=== PATIENT | female | born 1955 | race Caucasian/White ===

== ENCOUNTER → 2018-06-06 12:10 | Outpatient (REF) | payer MEDICAID, SELFPAY ==
--- NOTE | 2018-06-06 10:40 | PAPFT_PTH ---
PATIENT: Harriett Vyas LOC: [facility] U#:[id number] AGE/SX: 70/F ROOM: RE06/06/[address]: RO Kunz : 1955 BED: DIS: SPEC #: [id number] RECD: 06/06/18 12:52 STATUS: AMBER REQ #: [id number] ROYCE: 06/06/18 10:[address]: Antonieta Lindquist DEPT: [facility] Cytology RECD BY: Rachana Potter Tissues: 1 - CX/ENDOCX FOR PAP SMEARS Procedures: PAP THIN PREP/UVM Screening HPV DNA PROBE Comments: [id number]
== END ==
LOC: LBN 12:10
PROVIDERS: PCP Nurse Practitioner Family; Visit Provider Nurse Practitioner Family
DX: Z12.4 Encounter for screening for malignant neoplasm of cervix (principal); Z11.51 Encounter for screening for human papillomavirus (HPV)
CPT/HCPCS: 88142; 87624

== ENCOUNTER → 2018-06-14 02:42 | Outpatient (CLI) | payer MEDICAID, SELFPAY ==
[2018-06-14 07:54] LABS: Abs Immature Grans 0.01 k/cumm (0.0-0.09); Absolute Basophil Count 0.02 k/cumm (0.0-0.2); Absolute Eosinophil Count 0.09 k/cumm (0.0-0.7); Absolute Neutrophil Count 4.23 k/cumm (1.2-6.7); Basophils % 0.3; Eosinophils % 1.3; HGB 15.9 g/dL (12.0-15.5); Immature Grans % 0.1; Lymphocytes % 29.2; Mean Corp. HGB Concentration 33.8 g/dL (32.0-36.0); Mean Corpuscular Hemoglobin 30.6 pg (27.0-33.0); Mean Corpuscular Volume 90.6 fL (80-95); Mean Platelet Volume 10.7 fL (8.0-11.0); Monocytes % 7.3; Neutrophils % 61.8; Platelet Count 240 x1000/uL (130-400); RBC 5.19 m/cumm (4.00-5.20); RBC Distribution Width 13.2 % (11.7-14.6); White Blood Cell Count 6.85 k/cumm (4.4-10.8)
[2018-06-14 08:51] LABS: ALT 20 U/L (12-78); AST 16 U/L (15-37); Albumin 3.9 g/dL (3.4-5.0); Alkaline Phosphatase 54 U/L (46-116); Anion Gap 6.7 mmol/L (3-11); BUN 18 mg/dL (7-18); Bilirubin, Total 0.3 mg/dL (0.2-1.0); CO2 30.3 mmol/L (21.0-32.0); CREATININE 1.06 mg/dL (0.55-1.02); Calcium 9.1 mg/dL (8.5-10.1); Chloride 106 mmol/L (98-107); Cholesterol 182 mg/dL (50-200); Glucose 99 mg/dL (70-100); HDL Cholesterol 40 mg/dL (40-60); LDL CHOLESTEROL 122 mg/dL (<100); Sodium 143 mmol/L (136-145); TROPONIN-I 1.6 ug/mL (4.0-12.0); Total Protein 7.1 g/dL (6.4-8.2); Triglyceride 157 mg/dL (30-150)
== END ==
PROVIDERS: PCP Nurse Practitioner Family; Visit Provider Nurse Practitioner Family
DX: E78.5 Hyperlipidemia, unspecified (principal); I10 Essential (primary) hypertension; Z51.81 Encounter for therapeutic drug level monitoring; Z00.00 Encounter for general adult medical examination without abnormal findings
CPT/HCPCS: 36415; 80053; 80061; 83721; 80156; 85025

== ENCOUNTER 2018-07-02 00:20 | Outpatient (CLI) | payer MEDICAID, SELFPAY ==
--- NOTE | 2018-07-02 09:26 | DI.MAMMO_ITS ---
SYMPTOM/DIAGNOSIS: SCREENING, Z12.31 MAMMOGRAMS: Mammograms were interpreted according to the usual protocol including computer analysis with CAD system, tomosynthesis and C view imaging. Comparison is made with exams from [id number]. The breasts are composed of scattered fibroglandular densities, breast density, category B. No suspicious masses or suspicious microcalcifications are seen. There has been no significant change. IMPRESSION: Category 1B, negative mammogram. Routine screening is recommended. [facility] ASSESSMENT OF FINDINGS: Negative. Category 1. Patient will receive a letter notifying them of these results. BI-RADS category B. There are scattered areas of fibroglandular density.
== END 2018-07-02 00:40 ==
PROVIDERS: PCP Nurse Practitioner Family; Visit Provider Nurse Practitioner Family
DX: Z12.31 Encounter for screening mammogram for malignant neoplasm of breast (principal)
CPT/HCPCS: 77063; 77067

== ENCOUNTER 2020-06-08 02:33 | Outpatient (CLI) | payer MEDICAID, SELFPAY ==
[2020-06-08 12:42] LABS: ALT 31 U/L (14-59); AST 14 U/L (15-37); Albumin 3.9 g/dL (3.4-5.0); Alkaline Phosphatase 47 U/L (46-116); Anion Gap 10.1 mmol/L (3-11); BUN 18 mg/dL (7-18); Bilirubin, Total 0.3 mg/dL (0.2-1.0); CO2 27.9 mmol/L (21.0-32.0); CREATININE 0.94 mg/dL (0.55-1.02); Calcium 9.2 mg/dL (8.5-10.1); Calculated LDL 133 mg/dL (<100); Chloride 104 mmol/L (98-107); Cholesterol 208 mg/dL (<200); Glucose 95 mg/dL (74-106); HDL Cholesterol 34 mg/dL (40-60); Sodium 142 mmol/L (136-145); TSH 4.76 uIU/mL (0.36-3.74); Total Protein 7.1 g/dL (6.4-8.2); Triglyceride 205 mg/dL (<150)
[2020-06-08 12:46] LABS: Hemoglobin A1C 5.7 % (3.8-5.6)
== END 2020-06-08 02:53 ==
PROVIDERS: PCP Nurse Practitioner Family; Visit Provider Nurse Practitioner Family
DX: E78.5 Hyperlipidemia, unspecified (principal); I10 Essential (primary) hypertension
CPT/HCPCS: 36415; 80053; 80061; 83036; 84439; 84443

== ENCOUNTER 2020-07-13 00:20 | Outpatient (CLI) | payer MEDICAID, SELFPAY ==
--- NOTE | 2020-07-13 08:11 | DI.MAMMO_ITS ---
EXAM: MG MAMMO SCREENING CLINICAL HISTORY: screening,Z12.39 TECHNIQUE: Bilateral full field digital CC and MLO mammographic images were obtained with 3D tomosyn thesis and utilizing computer aided detection (CAD). COMPARISON: Available for comparison. FINDINGS: Masses/Architectural Distortion: None seen. Microcalcifications: No suspicious pleomorphic-type are seen. Skin Thickening/Nipple Retraction: None. IMPRESSION: 1. No significant interval change with no specific features of malignancy noted. 2. Unless there is more urgent need, screening mammography is recommended, as per [place] [employer] guidelines. BI-RADS Category 1 - Negative Breast Density - Category A - Almost entirely fatty A negative radiographic report should not delay biopsy if a dominant or clinically suspicious mass is present. Up to ten percent of cancers are not identified on mammography. A negative report may reinforce clinical impression. Adenosis and dense breasts may obscure an underlying neoplasm. False positive reports average 6 to 10%. Patient will receive a letter notifying them of these results.
== END 2020-07-13 00:40 ==
PROVIDERS: PCP Nurse Practitioner Family; Visit Provider Nurse Practitioner Family
DX: Z12.31 Encounter for screening mammogram for malignant neoplasm of breast (principal)
CPT/HCPCS: 77063; 77067

== ENCOUNTER 2020-09-24 03:05 | Outpatient (CLI) | payer MEDICAID, SELFPAY ==
[2020-09-24 12:46] LABS: Calculated LDL 101 mg/dL (<100); Cholesterol 181 mg/dL (<200); HDL Cholesterol 30 mg/dL (40-60); Triglyceride 253 mg/dL (<150)
== END 2020-09-24 03:25 ==
PROVIDERS: PCP Nurse Practitioner Family; Visit Provider Nurse Practitioner Family
DX: E78.5 Hyperlipidemia, unspecified (principal)
CPT/HCPCS: 36415; 80061

== ENCOUNTER 2021-04-19 09:29 | Emergency (ER) | payer MEDICAID, SELFPAY ==
[2021-04-19 09:39] VITALS: BP 133/84; PULSE 79; RESP 18; TEMP 36.7; O2SAT 98
--- NOTE | 2021-04-19 10:03 | DI.RAD_ITS ---
Exam(s) XR FOOT LT COMPLETE EXAM: XR FOOT LT COMPLETE CLINICAL HISTORY: fall/injury yesterday. TECHNIQUE: 2D digital imaging was performed. COMPARISON: No exams were available for comparison FINDINGS: There is no evidence of fracture or diastasis of the Lisfranc joint. Mild degenerative changes are n oted in the metatarsophalangeal joint of the great toe. There is also increased density in the soft tissues medial to the great toe metatarsal head. Other metatarsophalangeal joints appear unremarkabl e as do the interphalangeal joints and more proximal joints of the foot. Tiny inferior calcaneal spu r is noted. IMPRESSION: DATA REPOSITORY: RADIATION DOSE DELIVERED:
--- NOTE | 2021-04-19 10:41 | ED.GENADUL_ITS ---
Discharge Plan Disposition Patient Disposition: HOME Condition: Stable Discharge Details Clinical Impression: Contusion of foot Primary Care Provider: Antonieta Lindquist ED Provider: Kelvin Cuadra Home Meds and New Rx's Prescriptions: Continued aspirin [Adult Low Dose Aspirin] 81 mg tablet,delayed release (DR/EC) 162 mg PO DAILY RF: 0 famotidine 20 mg tablet 20 mg PO DAILY Qty: 90 RF: 4 hydrochlorothiazide 12.5 mg tablet 12.5 mg PO DAILY Qty: 90 RF: 4 losartan [Cozaar] 100 mg tablet 100 mg PO DAILY Qty: 90 RF: 4 atorvastatin [Lipitor] 80 mg tablet 80 mg PO DAILY Qty: 90 RF: 4 bupropion HCl [Wellbutrin XL] 150 mg tablet extended release 24 hr 150 mg PO DAILY Qty: 90 RF: 4 Discharge Instructions Instructions: Foot Contusion (ED) Additional Instructions: X-ray is unremarkable. Wear short boot as needed, advance activity as tolerated. Rest, elevate, cool compresses every 2 hours for 20 minutes. Jtyw-nec-mzufaqm medications such as Tylenol and/or Motrin as directed for discomfort. Please watch for new or worsening symptoms and return to the ER for any concerns. Medical Decision Making 65-year-old female presents for a left foot injury she sustained last night. Neuro, vascular, tendon intact. Will obtain x-ray and reassess X-ray of left foot read by me and confirmed by radiology as no acute fracture. Discussed x-ray with patient. Discussed treatment plan disposition. Patient placed into a short walking boot, reports significant improvement. Patient comfortable treating with conservative measures, resting, elevating, cool compress, Tylenol, Motrin, and will advance activity with her walking boot as tolerated. Declined crutches. Medical Records Medical records reviewed: Yes I reviewed the patient's medical records. Imaging Data Radiologic Study: Attestation: I personally reviewed and interpreted this imaging study as follows: Imaging: X-Ray Radiologist's impression: There is no evidence of fracture or diastasis of the Lisfranc joint. Mild degenerative changes are noted in the metatarsophalangeal joint of the great toe. There is also increased density in the soft tissues medial to the great toe metatarsal head. Other met atarsophalangeal joints appear unremarkable as do the interphalangeal joints and more proximal joints of the foot. Tiny inferior calcaneal spur is noted. HPI General Mode of arrival: ambulatory . Date/Time Provider Initiated Documentation: 04/19/21 09:49 . Limitations to Documentation: no limitations . Information obtained by: patient . HPI Narrative: This is a 65-year-old female, past medical history that includes CVA, hypertension, GERD, hyperlipidemia, presenting for a left foot injury. Patient states last night she slipped, attempted to catch herself, striking her left foot against the bedpost. She denies any other injury. Denies numbness, tingling, weakness. Patient reports that she is able to bear weight but this increases her discomfort. Patient has rested and elevated as well as cool compresses yesterday. Reports the pain is moderate at rest, worse with movement or bearing weight. Related Data Home Medications Medication Instructions Recorded Confirmed hydrochlorothiazide 12.5 mg tablet 12.5 mg PO DAILY #90 tab-cap 04/19/20 04/19/21 losartan 100 mg tablet 100 mg PO DAILY #90 tab-cap 04/19/20 04/19/21 aspirin 81 mg tablet,delayed 162 mg PO DAILY tab 05/04/20 04/19/21 release famotidine 20 mg tablet 20 mg PO DAILY #90 tab 05/04/20 04/19/21 atorvastatin 80 mg tablet 80 mg PO DAILY #90 tab 07/02/20 04/19/21 bupropion HCl 150 mg 24 hr tablet, 150 mg PO DAILY #90 tab 07/23/20 04/19/21 extended release Previous Rx's Medication Instructions Recorded hydrochlorothiazide 12.5 mg tablet 12.5 mg PO DAILY #90 tab-cap 04/19/20 losartan 100 mg tablet 100 mg PO DAILY #90 tab-cap 04/19/20 famotidine 20 mg tablet 20 mg PO DAILY #90 tab 05/04/20 atorvastatin 80 mg tablet 80 mg PO DAILY #90 tab 07/02/20 bupropion HCl 150 mg 24 hr tablet, 150 mg PO DAILY #90 tab 07/23/20 extended release Allergies Allergy/AdvReac Type Severity Reaction Status Date / Time lisinopril Allergy Unknown HIVES Unverified 04/19/21 09:43 latex Allergy Skin Rash Unverified 04/19/21 09:43 General Stated Complaint: Orthopedic TIMI: 4 Review of Systems Constitutional Constitutional: Denies weakness Musculoskeletal Musculoskeletal: Denies deformity, Denies arthralgias, Denies numbness, Reports stiffness and Denies tingling Integumentary/Breasts Skin/Breast: Denies erythema Neurologic Neurologic: Denies numbness, Denies tingling and Denies weakness [facility] Medical History Allergic rhinitis Cigarette smoker CVA (cerebral vascular accident) (~2003) Diverticulosis of colon Sigmoid and descending colon Essential hypertension GERD (gastroesophageal reflux disease) Hyperlipidemia Major depressive disorder Prediabetes Surgical History History of section (~1971) S/P colonoscopy (07/25/17) S/P tonsillectomy Family History Mother , 92 Dementia Heart disease Hypertension Father , at 63 of colon cancer Colon cancer Myocardial infarction Heart disease Sister No problems noted. Sister No problems noted. Sister No problems noted. Brother No problems noted. Maternal Grandfather Heart disease Maternal Grandmother Heart disease Paternal Grandfather Cancer of kidney Heart disease Paternal Grandmother , at 63 of ovarian cancer Ovarian cancer Social History Smoking/Tobacco Use Status: Current every day Tobacco Type: cigarettes Smoking packs per day: 1 Smoking cigarettes per day: 20.0 Years smoked: 45 Smoking pack- years: 45.00 Tobacco: How many years used: 45 Quit status: not considering quitting Second Hand Exposure: Yes Smoking risk assessment performed?: Yes Alcohol Intake: current Alcohol Intake frequency: a few times a month Alcohol type: beer Drug use: Occasionally Substance use type: marijuana Caregiver/Support person: No Household members: none Housing: house Communication Needs: Hard of Hearing Do you need help understanding health information?: Rarely Pets and animals: Yes Pets and animals: cat(s) Sexually active: No Do you think of yourself as: straight/heterosexual Current gender identity: female What is your relationship status?: never How often do you talk on the phone with friends or family?: three or more times per week How often do you get together with friends or relatives?: twice per week How often do you attend confucianism or episcopal services?: decline to answer Do you belong to any clubs or organized social groups?: no Panel score (0-1 are the most socially isolated patients): 1 What type of physical activity do you participate in: none Brit/Cheondoism: Islam Special brit needs: No Seatbelt use: always Helmet use: Yes Helmet use: always Drive intox or ride w/intox diesel truck driver: No Do you feel safe at home: Yes Do you feel safe in your relationship?: Yes Female Reproductive History Menstrual Menopause type: natural History History 1 Para 1 Hx # Term Pregnancies Multiple births Hx # Pregnancies Ectopic pregnancies AB induced Hx Number of Living Children 1 AB spontaneous Exam Const General: cooperative, healthy appearing, comfortable and no acute distress Orientation: alert and awake HENMT Head: normal to inspection, normocephalic and atraumatic Eyes Conjunctivae: conjunctivae normal Neck Neck: normal visual inspection, trachea midline and supple Resp Effort & Inspection: normal respiratory effort and able to speak in complete sentences Cardio Rate: regular rate Rhythm: regular rhythm Skin General skin exam: no rashes or lesions noted Neuro General: patient alert, patient awake, moves all extremities and no focal motor deficits Gait: antalgic Sensory Exam: no sensory deficits noted Extrem General: full ROM and capillary refill normal Ankle/foot/toe images: 1. Contusion, swelling, tenderness, ecchymosis. Neuro, vascular, tendon intact. Full range of motion. Normal dorsalis pedal pulse and capillary r efill. Ankle unremarkable Psych Appearance: grossly normal Mental Status: mental status grossly normal Course Vital Signs Vital signs: Vital Signs Temperature 36.7 C 04/19/21 09:39 Pulse 79 04/19/21 09:39 Respiratory Rate 18 04/19/21 09:39 Blood Pressure 133/84 04/19/21 09:39 Pulse Oximetry 98 04/19/21 09:39 Temperature 36.7 C 04/19/21 09:39 Temperature Source Temporal Artery Scan 04/19/21 09:39 Pulse 79 04/19/21 09:39 Respiratory Rate 18 04/19/21 09:39 Respiratory Effort Non-Labored 04/19/21 09:45 Blood Pressure 133/84 04/19/21 09:39 Blood Pressure Position Sitting 04/19/21 09:39 Pulse Oximetry 98 04/19/21 09:39 Oxygen Delivery Method Room Air 04/19/21 09:39 Oxygen Flow Rate 0 04/19/21 09:39 Pain Level 6 04/19/21 09:39
== END 2021-04-19 10:53 | disposition home or self-care (01) ==
PROVIDERS: Emergency Provider Physician Assistant; PCP Nurse Practitioner Family
DX: S90.32XA Contusion of left foot, initial encounter (principal); W01.190A Fall on same level from slipping, tripping and stumbling with subsequent striking against furniture, initial encounter
CPT/HCPCS: 29515; 99283; 73630

== ENCOUNTER 2021-06-21 14:38 | Outpatient (REF) | payer MEDICAID, SELFPAY ==
--- NOTE | 2021-06-21 13:20 | PAPFT_PTH ---
PATIENT: Harriett Vyas LOC: [facility] U#:[id number] AGE/SX: 65/F ROOM: RE06/21/[address]: RO Kunz : 1955 BED: DIS: 06/21/2021 SPEC #: [id number] RECD: 06/21/21 18:34 STATUS: AMBER REQ #: [id number] ROYCE: 06/21/21 13:[address]: Antonieta Lindquist DEPT: [facility] Cytology RECD BY: Rachana Potter Tissues: 1 - CX/ENDOCX FOR PAP SMEARS Procedures: PAP THIN PREP/UVM Screening HPV DNA PROBE Comments: [id number]
== END 2021-06-21 14:39 | disposition home or self-care (01) ==
LOC: LBN 14:38
PROVIDERS: PCP Nurse Practitioner Family; Visit Provider Nurse Practitioner Family
DX: Z12.4 Encounter for screening for malignant neoplasm of cervix (principal); Z11.51 Encounter for screening for human papillomavirus (HPV)
CPT/HCPCS: 88142; 87624

== ENCOUNTER 2022-06-20 04:29 | Outpatient (CLI) | payer MEDICARE, MEDICAID, SELFPAY ==
[2022-06-20 12:39] LABS: Anion Gap 8.9 mmol/L (3-11); BUN 22 mg/dL (7-18); CO2 29.1 mmol/L (21.0-32.0); Calcium 8.7 mg/dL (8.5-10.1); Calculated LDL 112 mg/dL (<100); Chloride 104 mmol/L (98-107); Cholesterol 182 mg/dL (<200); Estimated GFR 55.64 (mL/min/1.73m2); Glucose 100 mg/dL (74-106); HDL Cholesterol 39 mg/dL (40-60); Potassium 4.1 mmol/L (3.5-5.1); Sodium 142 mmol/L (136-145); Triglyceride 159 mg/dL (<150)
[2022-06-20 12:58] LABS: Hemoglobin A1C 5.9 % (<5.7)
== END 2022-06-20 04:30 | disposition home or self-care (01) ==
LOC: LOS 04:30
PROVIDERS: PCP Nurse Practitioner Family; Visit Provider Nurse Practitioner Family
DX: R73.03 Prediabetes (principal); I10 Essential (primary) hypertension
CPT/HCPCS: 36415; 80048; 80061; 83036

== ENCOUNTER → 2022-08-26 00:09 | Outpatient (CLI) | payer MEDICARE, MEDICAID, SELFPAY ==
--- OUTSIDE RECORDS SUMMARY | 2022-08-26 00:10 | XMS_ITS | Encounter Summary ---
:1955 Author Organization [facility] Address [address] [place] [address] Care Team Providers Name Role Phone Unavailable Primary Care Provider Unavailable Encounter Details Date Type Department Care Team Description 08/10/2007 Results Only [facility] - Colten Hunter, DO Maple conversion [address] [place] [address] [place], [place] [id number] [phone] Social History Tobacco Use Types Packs/Day Years Used Date Never Assessed Sex Assigned at Date Recorded Not on file documented as of this encounter Plan of Treatment Not on filedocumented as of this encounter Procedures Procedure Name Priority Date/Time Associated Diagnosis Comme [facility] SURGICAL PATHOLOGY Routine 08/10/2007 0:00 EDT Re sults for this procedure are i n the results section. documented in this encounter Results SURGICAL PATHOLOGY (08/10/2007 0:00 EDT) Pathology Report: SURGICAL PATHOLOGY REPORT [facility] Reports generated via electronic interface contain frances ginal data; LAB however they are lacking the format of the original re port. Caution should be taken when reading/interpreting unfo rmatted reports. Name: ? HEATHER REYNAGA ? Accession #: ? [id number] ? : ? 1955 (Age: 52) ??F ? Collect Date: ? 08/10/2007 ? Location: ? [facility] ? Receive Date: ? 007 ? Provider: COLTEN HUNTER DO Copy to: ? Final Pathologic Diagnosis: ? Skin of shoulder, left, punch biopsy: - Seborrheic keratosis, pigmented. Microscopic Description: ? The stratum corneum i s thickened by compact and basketweave orthokeratosis with formation of horn pseud ocysts. ??The epidermis is acanthotic with formation of broad and anastomosing tr abeculae. ??The trabeculae are composed of basaloid keratinocytes with round uniform nuclei. ??The keratin ocytes have a variable amount of melanin pigment. ??(Dr. Telles)/[facility] Document reviewed and electronically signed by: Rachel Telles MD Report ??Date: 08/15/2007 15:06 By the signature above, the attending physician certif ies that he/she has personally conducted a gross and/or microscopic examin ation of the described specimens and rendered or confirmed the above diagnosi s. Specimen(s) Received: ? L shoulder Clinical History: ? Atypical lesion L shoulder Gross Description: ? Received in formalin labelled Lilliam and atypical lesion L shoulder is a punch biopsy of skin which measures 0.3 cm in анна meter by 0.2 cm in thickness. ??There is a 0.3 x 0.3 x 0.1 cm brown verrucous papule. ??The specimen is submitted in one cassette. ??([place]. Garcia[place] End of Report Specimen Performing Organization Address City/State/ZIP Code Phon e Number [facility] [address] [place] [address] SERVICES [facility] [address] [place] [address] documented in this encounter Visit Diagnoses Not on filedocumented in this encounter
--- OUTSIDE RECORDS SUMMARY | 2022-08-26 00:10 | XMS_ITS | Encounter Summary ---
:[address] [facility] Address [address] [place] [address] Care Team Providers Name Role Phone Unavailable Primary Care Provider Unavailable Encounter Details Date Type Department Care Team Description 09/25/2007 Results Only [facility] - Vandana Bonner, Chr istopher, conversion DO [address] [facility] [address] [facility] [address] [place] [address] [place] [address] (Wo rk) Social History Tobacco Use Types Packs/Day Years Used Date Never Assessed Sex Assigned at Date Recorded Not on file documented as of this encounter Plan of Treatment Not on filedocumented as of this encounter Procedures Procedure Name Priority Date/Time Associated Diagnosis Comme [facility] SURGICAL PATHOLOGY Routine 09/25/2007 0:00 EST Re sults for this procedure are i n the results section. documented in this encounter Results SURGICAL PATHOLOGY (09/25/2007 0:00 EST) Pathology Report: SURGICAL PATHOLOGY REPORT [facility]EC[facility] Reports generated via electronic interface contain frances ginal data; LAB however they are lacking the format of the original re port. Caution should be taken when reading/interpreting unfo rmatted reports. Name: ? HEATHER REYNAGA ? Accession #: ? [id number] ? : ? 1955 (Age: 52) ??F ? Collect Date: ? 09/25/2007 ? Location: ? [facility] ? Receive Date: ? 007 ? Provider: TONY BONNER DO Copy to: JESSICA MACK DO ? Final Pathologic Diagnosis: ? Rectum, polyp, biopsy: - Cauterized colonic mucosa. ??See comment. Comment: ? The degree of cautery effect precludes further diagnosis. (Dr. Wright)/[facility] Document reviewed and electronically signed by: CHERELLE WRIGHT MD Report ??Date: 09/26/2007 17:30 By the signature above, the attending physician certif ies that he/she has personally conducted a gross and/or microscopic examin ation of the described specimens and rendered or confirmed the above diagnosi s. Specimen(s) Received: ? Polyp rectum Clinical History: ? Screening for colon cancer Gross Description: ? Received in Hollande' s fixative labelled Mariola and polyp rectum is a caballero-pink 0.3 x 0.2 x 0.2 cm tissue. ??The specimen is entirely submitted in one cassette. ??(Monico Grimm/[facility] End of Report Specimen Performing Organization Address City/State/ZIP Code Phon e Number [facility] [address] [place] [address] SERVICES [facility] [address] [place] [address] documented in this encounter Visit Diagnoses Not on filedocumented in this encounter
--- OUTSIDE RECORDS SUMMARY | 2022-08-26 00:10 | XMS_ITS | Encounter Summary ---
:1955 Author Organization [facility] Address [address] [place] [address] Care Team Providers Name Role Phone DaleColten ivan Primary Care Provider Encounter Details Date Type Department Care Team Description 06/22/2021 Lab Requisition [facility] Antonieta Lindquist E ncounter for other Pathology & LOGISTICS ANALYTICS MANAGER general examination Laboratory Medicine [address] [place] [address] [address] [place] [id number] [phone] Social History Tobacco Use Types Packs/Day Years Used Date Never Assessed Sex Assigned at Date Recorded Not on file documented as of this encounter Plan of Treatment Not on filedocumented as of this encounter Procedures Procedure Name Priority Date/Time Associated Comments Diagnosis PAP TEST Today 06/21/2021 13:20 Encounter for other Resu lts for this EDT general examination procedur e are in the results section. HUMAN PAPILLOMAVIRUS Today 06/21/2021 13:20 Encounter for ot her Results for this (HPV) DETECTION-HIGH EDT general examination procedure are in RISK TYPES the results section. documented in this encounter Results HUMAN PAPILLOMAVIRUS (HPV) DETECTION-HIGH RISK TYPES (06/21/2021 13:20 EDT) Human Papillomavirus NegativeComment: No Negative [facility] (HPV) Detection-High E6 or E7 mRNA is CENTER LABORATOR Y Types detected from HPV SERVICES types 16,18,31,33,35,39,45 ,51,52,56,58,59,66, and 68 by senior compensation consultant mediated amplification. Specimen Pap Test - Cervix and/or Endocervix Performing Organization Address City/State/ZIP Code Phon e Number [facility] [address] [place] [address] SERVICES PAP TEST (06/21/2021 13:20 EDT) Specimens A. Cervix and/or [facility] Endocervix , ThinPrep CENTER Imaging System with LABORATORY Manual Evaluation SERVICES Specimen Adequacy Satisfactory for [facility] Evaluation - CENTER transformation zone LABORATORY component present SERVICES General Negative for [facility] Categorization intraepithelial CENTER lesion or malignancy LABORATORY SERVICES Attestation . [facility] signed by MUNA Littel CT(ASCP ) on SERVICES 07/05/2021 at 14 48 Clinical History See below [facility] SERVICES HPV The result for the Human Pap illomavirus (HPV) Detection-High Risk Types is Negative. No E6 or E7 mRNA is detected from HPV types 16,18,31,33,35,39,45,51,52,56,58,59,66, and 68 by senior compensation consultant mediated [facility] amplification.Testing was pe rformed on specimen [id number] and was resulted on 07/05/2021 1442 EDT by HARRY, LAB INSTRUMENT RESULTS IN [facility] SERVICES Performing Lab [facility] LAB [facility] SERVICES Scanned Images [facility] SERVICES Specimen Pap Test - Cervix and/or Endocervix Performing Organization Address City/State/ZIP Code Phon e Number [facility] [address] [place] [address] SERVICES documented in this encounter Visit Diagnoses Diagnosis Encounter for other general examination documented in this encounter Care Teams Nurse Sitter Relationship Specialty Start Date End Date Colten Hunter DO PCP - General 04/04/13 [address] [place] [address] documented as of this encounter
--- OUTSIDE RECORDS SUMMARY | 2022-08-26 00:10 | XMS_ITS | Encounter Summary ---
:1955 Author Organization [facility] Address [address] [place] [address] Care Team Providers Name Role Phone Colten Hunter Primary Care Provider Encounter Details Date Type Department Care Team Description 05/29/2017 Results Only [facility]- PRISM Nu Bonilla NP [phone] [facility] [place] [address] (Wo rk) Social History Tobacco Use Types Packs/Day Years Used Date Never Assessed Sex Assigned at Date Recorded Not on file documented as of this encounter Plan of Treatment Not on filedocumented as of this encounter Procedures Procedure Name Priority Date/Time Associated Diagnosis Comme nts PAP TEST- RESULT Routine 05/29/2017 0:00 EDT Resu lts for this ONLY procedure are i n the results section. documented in this encounter Results PAP TEST- RESULT ONLY (05/29/2017 0:00 EDT) Pathology Report: CYTOPATHOLOGY REPORT [facility] Reports generated via electronic interface contain frances ginal data; SERVICES however they are lacking the format of the original re port. Caution should be taken when reading/interpreting unfo rmatted reports. Name: ? HEATHER REYNAGA ? Accession #: ? [id number] ? : ? 1955 (Age: 61 ) ??F ?Collect Date: ? 2016 ? Location: ? [facility] ? Receive Date: ? 7 ? Provider: NU BONILLA LAND MANAGER Copy to: ? Final Report SPECIMEN ADEQUACY ? Satisfactory for Evaluation - transformation zone component present GENERAL CATEGORIZATION ? Epithelial Cell Abnormality INTERPRETATION ? Squamous Cell Abnormality - Low grade squamous intraepithelial lesion (LSIL). EDUCATIONAL NOTES/RECOMMENDATIONS ? [facility] recommends foll owing ASCCP's 2012 Updated Consensus Guidelines for the Management of Abnormal Cervical Cancer Screening T ests and Cancer Precursors (JLGTD, 2013; 17(5):S1-S27). ??Conse nsus guidelines are available online at www.asccp.org. Menstrual/ Status: ??Post Menopausal Hormonal/Contraceptive status: None Other: Barrel Charrer Clinical/Treatment Hx - None Specimen/Source: ??Pap Test, Cervix/Endocervix, ThinPr ep Imaging System with manual evaluation Document reviewed and electronically signed by: ? PETE RUBI MD ? Report ??Date: 06/09/2017 08:58 HPV with Pap Test ? Date Ordered: ? 06/08/2017 ? Status: ?? Signed Out ?Date Complete: ? 06/12/2017 ? By: ??Sy stem Interface ? Date Reported: ? 06/12/2017 ? Interpretation RESULT: Negative for HPV. No E6 or E7 mRNA is detected from HPV types 16,18,31,3 3,35, 39,45,51,52,56,58,59,66, and 68 by health and human performance professor media abbe amplification. Comments Document reviewed and electronically signed by: ? System Interface ? Report date: 06/12/2017 By the signature above, the attending physician certif ies that he/she has personally conducted a gross and/or microscopic examin ation of the described specimens and rendered or confirmed the above diagnosi s. End of Report Specimen Performing Organization Address City/State/ZIP Code Phon e Number [facility] [address] [place] [address] SERVICES documented in this encounter Visit Diagnoses Not on filedocumented in this encounter Care Teams Manager Money Relationship Specialty Start Date End Date Colten Hunter, PCP - General 04/04/13 [facility] [place] [address] documented as of this encounter
--- OUTSIDE RECORDS SUMMARY | 2022-08-26 00:10 | XMS_ITS | Encounter Summary ---
:1955 Author Organization [facility] Address [address] [place] [address] Care Team Providers Name Role Phone Unavailable Primary Care Provider Unavailable Encounter Details Date Type Department Care Team Description 04/02/2013 Results Only [facility] Noam Hunter, DO Laboratory Services - [address] [facility] [place] [address] [address] [facility] [place] [address] [phone] Social History Tobacco Use Types Packs/Day Years Used Date Never Assessed Sex Assigned at Date Recorded Not on file documented as of this encounter Plan of Treatment Not on filedocumented as of this encounter Procedures Procedure Name Priority Date/Time Associated Diagnosis Comme [facility] SURGICAL PATHOLOGY Routine 04/02/2013 9:46 EDT Re sults for this procedure are i n the results section. documented in this encounter Results SURGICAL PATHOLOGY (04/02/2013 9:46 EDT) Pathology Report: SURGICAL PATHOLOGY REPORT [facility] Reports generated via electronic interface contain frances ginal data; LAB however they are lacking the format of the original re port. Caution should be taken when reading/interpreting unfo rmatted reports. Name: ? YULIET REYNAGA ? Accession #: ? [id number] ? : ? 1955 (Age: 57) ??F ? Collect Date: ? 04/02/2013 ? Location: ? [facility] ? Receive Date: ? 013 ? Provider: JESSICA HUNTER DO Copy to: ? Final Pathologic Diagnosis: ? Skin of breast, right, punch biopsies: - ?Seborrheic keratosis. ?? Microscopic Description: ? The stratum corneum i s thickened by compact and basketweave orthokeratosis with formation of horn pseud ocysts. ??The epidermis is acanthotic with formation of broad and anastomosing tr abeculae. ??The trabeculae are composed of basaloid keratinocytes with round uniform nuclei. ??The keratin ocytes have a variable amount of melanin pigment. ??(Dr. Vale)/faraz Document reviewed and electronically signed by: ANNA BURKETT MD Report ??Date: 04/04/2013 15:16 By the signature above, the attending physician certif ies that he/she has personally conducted a gross and/or microscopic examin ation of the described specimens and rendered or confirmed the above diagnosi s. Specimen(s) Received: ? 2.0 mm punch x2 Clinical History: ? Enlarging irritated seborrheic keratosis R minnie [facility] Gross Description: ? Received in formalin labelled Yuliet Reynaga e and R breast is a circular punch biopsy of caballero-munroe skin m easuring 0.2 cm in diameter and 0.1 cm in thickness. ??Also receive d is a 0.3 x 0.2 x 0.1 cm, irregular, munroe-white soft tissue fragment. ??The speci men is entirely submitted as (1). (Jessika Huitron)/[facility] End of Report Specimen Performing Organization Address City/State/ZIP Code Phon e Number [facility] [address] [place] [address] SERVICES [facility] [address] [place] [address] documented in this encounter Visit Diagnoses Not on filedocumented in this encounter
--- OUTSIDE RECORDS SUMMARY | 2022-08-26 00:10 | XMS_ITS | Clinical Summary ---
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
--- OUTSIDE RECORDS SUMMARY | 2022-08-26 00:10 | XMS_ITS | Encounter Summary ---
:1955 Author Organization [facility] Address [address] [place] [address] Care Team Providers Name Role Phone Colten Hunter Primary Care Provider Encounter Details Date Type Department Care Team Description 06/06/2018 Results Only [facility]- PRISM Oskar Lindquist NP [phone] [place] [address] (Wo rk) Social History Tobacco Use Types Packs/Day Years Used Date Never Assessed Sex Assigned at Date Recorded Not on file documented as of this encounter Plan of Treatment Not on filedocumented as of this encounter Procedures Procedure Name Priority Date/Time Associated Diagnosis Comme nts PAP TEST- RESULT Routine 06/06/2018 0:00 EDT Resu lts for this ONLY procedure are i n the results section. documented in this encounter Results PAP TEST- RESULT ONLY (06/06/2018 0:00 EDT) Pathology Report: CYTOPATHOLOGY REPORT [facility] Reports generated via electronic interface contain frances ginal data; SERVICES however they are lacking the format of the original re port. Caution should be taken when reading/interpreting unfo rmatted reports. Name: ? HEATHER REYNAGA ? Accession #: ? [id number] ? : ? 1955 (Age: 62 ) ??F ?Collect Date: ? 06/06/2018 ? Location: ? [facility] ? Receive Date: ? 06/07/20 18 ? Provider: OSKAR MARYLINRUBY METAL TEMPLATE MAKER Copy to: ? Final Report SPECIMEN ADEQUACY ? Satisfactory for Evaluation - transformation zone component present GENERAL CATEGORIZATION ? Negative for Intraepithelial Lesion or Malignan cy INTERPRETATION ? Reactive cellular abraham nges associated with inflammation present (includes repair). Menstrual/ Status: ??Menopausal Previous Gynecologic Pathology: LSIL: 2017 Infection History: Neg for HPV Specimen/Source: ??Pap Test, Endocervix, ThinPrep Imag ing System with manual evaluation Document reviewed and electronically signed by: ? EVERETT CALVILLO MD ? Report ??Date: 06/20/2018 12:31 HPV with Pap Test ? Date Ordered: ? 06/20/2018 ? Status: ?? Signed Out ?Date Complete: ? 06/21/2018 ? By: ??Sy stem Interface ? Date Reported: ? 06/21/2018 ? Interpretation RESULT: Negative for HPV. No E6 or E7 mRNA is detected from HPV types 16,18,31,3 3,35, 39,45,51,52,56,58,59,66, and 68 by gyro compass tester media abbe amplification. Comments Document reviewed and electronically signed by: ? System Interface ? Report date: 06/21/2018 By the signature above, the attending physician certif ies that he/she has personally conducted a gross and/or microscopic examin ation of the described specimens and rendered or confirmed the above diagnosi s. End of Report Specimen Performing Organization Address City/State/ZIP Code Phon e Number [facility] [address] [place] [address] SERVICES documented in this encounter Visit Diagnoses Not on filedocumented in this encounter Care Teams Department Head College Or University Relationship Specialty Start Date End Date Colten Hnuter, PCP - General 04/04/13 [address] [facility] [place] [address] documented as of this encounter
--- OUTSIDE RECORDS SUMMARY | 2022-08-26 00:10 | XMS_ITS | Encounter Summary ---
:1955 Author Organization [facility] Address [address] [place] [address] Care Team Providers Name Role Phone Colten Hunter Primary Care Provider Encounter Details Date Type Department Care Team Description 04/15/2014 Results Only [facility]- PRISM Nu Bonilla NP [phone] [facility] [address] (Wo rk) Social History Tobacco Use Types Packs/Day Years Used Date Never Assessed Sex Assigned at Date Recorded Not on file documented as of this encounter Plan of Treatment Not on filedocumented as of this encounter Procedures Procedure Name Priority Date/Time Associated Diagnosis Comme nts PAP TEST- RESULT Routine 04/15/2014 0:00 EDT Resu lts for this ONLY procedure are i n the results section. documented in this encounter Results PAP TEST- RESULT ONLY (04/15/2014 0:00 EDT) Pathology Report: CYTOPATHOLOGY REPORT [facility] Reports generated via electronic interface contain frances ginal data; however they are lacking the format of the original re port. Caution should be taken when reading/interpreting unfo rmatted reports. Name: ? HEATHER REYNAGA ? Accession #: ? [id number] ? : ? 1955 (Age: 58) ??F ?Collect Da te: ? 04/15/2014 ? Location: ? [facility] ? Receive Date: ? 014 ? Provider: NU BONILLA CANDY SEPARATOR ENROBING Copy to: ? Final Report SPECIMEN ADEQUACY ? Satisfactory for Evaluation - transformation zone component present GENERAL CATEGORIZATION ? Negative for Intraepithelial Lesion or Malignan cy ?? Last Menstrual Period: 8+ yrs ago Specimen/Source: ??Pap Test, Cervix/Endocervix, ThinPr ep Imaging System with manual evaluation Document reviewed and electronically signed by: ? Jaida Cortes, FERN(ASCP) ? Report ??Date: 04/28/2014 08:06 HPV with Pap Test ? Date Ordered: ? 04/28/2014 ? Status: ?? Signed Out ?Date Complete: ? 04/30/2014 ? By: ??S ystem Interface ? Date Reported: ? 04/30/2014 ? Interpretation RESULT: Negative for HPV. No E6 or E7 mRNA is detected from HPV types 16,18,31,3 3,35, 39,45,51,52,56,58,59,66, and 68 by manager alliance media abbe amplification. Comments Document reviewed and electronically signed by: ? System Interface ? Report date: 04/30/2014 By the signature above, the attending physician certif ies that he/she has personally conducted a gross and/or microscopic examin ation of the described specimens and rendered or confirmed the above diagnosi s. End of Report Specimen Performing Organization Address City/State/ZIP Code Phon e Number [facility] [address] [place] [address] SERVICES [facility] [address] [place] [address] documented in this encounter Visit Diagnoses Not on filedocumented in this encounter Care Teams Splunk Dashboard Developer Relationship Specialty Start Date End Date Colten Hunter, PCP - General 04/04/13 [address] [place] [address] documented as of this encounter
--- OUTSIDE RECORDS SUMMARY | 2022-08-26 00:10 | XMS_ITS | Encounter Summary ---
:1955 Author Organization [facility] Address [address] [place] [address] Care Team Providers Name Role Phone Unavailable Primary Care Provider Unavailable Encounter Details Date Type Department Care Team Description 12/07/2011 Results Only [facility] Noam Hunter, DO Laboratory Services - [address] [facility] [place] [address] [address] [facility] [place] [address] [phone] Social History Tobacco Use Types Packs/Day Years Used Date Never Assessed Sex Assigned at Date Recorded Not on file documented as of this encounter Plan of Treatment Not on filedocumented as of this encounter Procedures Procedure Name Priority Date/Time Associated Diagnosis Comme nts PAP TEST- RESULT Routine 12/07/2011 0:00 EST Resu lts for this ONLY procedure are i n the results section. documented in this encounter Results PAP TEST- RESULT ONLY (12/07/2011 0:00 EST) Pathology Report: CYTOPATHOLOGY REPORT [facility] Reports generated via electronic interface contain frances ginal data; however they are lacking the format of the original re port. Caution should be taken when reading/interpreting unfo rmatted reports. Name: ? HEATHER REYNAGA ? Accession #: ? [id number] ? : ? 1955 (Age: 56) ??F ?Collect Da te: ? 12/07/2011 ? Location: ? [facility] ? Receive Date: ? 012 ? Provider: JESSICA HUNTER DO Copy to: ? Final Report SPECIMEN ADEQUACY ? Satisfactory for Evaluation - transformation zone component absent GENERAL CATEGORIZATION ? Negative for Intraepithelial Lesion or Malignan cy INTERPRETATION ? Shift in danny present suggestive of bacterial vaginosis. Menstural/ Status: ??Post Menopausal Specimen/Source: ??Pap Test, Cervix/Endocervix, ThinPr ep Imaging System with manual evaluation Document reviewed and electronically signed by: ? Blanca Wilkinson, [facility](ASCP) ? Report ??Date: 12/13/2011 14:33 HPV with Pap Test ? Date Ordered: ? 12/13/2011 ? Status: ?? Signed Out ?Date Complete: ? 12/15/2011 ? By: ??S ystem Interface ? Date Reported: ? 12/15/2011 ? Interpretation RESULT: Positive for one or more of HPV types 16,18,31 ,33,35,39,45, 51,52,56,58,59, or 68. These high/intermediate risk HP V types are associated with some squamous intraepithelia l lesions and cervical cancers. Comments Document reviewed and electronically signed by: ? System Interface ? Report date: 12/15/2011 By the signature above, the attending physician certif ies that he/she has personally conducted a gross and/or microscopic examin ation of the described specimens and rendered or confirmed the above diagnosi s. End of Report Specimen Performing Organization Address City/State/ZIP Code Phon e Number [facility] [address] [place] [address] SERVICES [facility] [address] [place] [address] documented in this encounter Visit Diagnoses Not on filedocumented in this encounter
--- OUTSIDE RECORDS SUMMARY | 2022-08-26 00:10 | XMS_ITS | Encounter Summary ---
:1955 Author Organization [facility] Address [address] [place] [address] Care Team Providers Name Role Phone Unavailable Primary Care Provider Unavailable Encounter Details Date Type Department Care Team Description 10/14/2008 Before PRISM [facility] - Colten Hunter, Converted Visit Maple conversion DO (Maple) [address] [facility] [address] [place] [address] [place] [address] (Wo rk) Social History Tobacco Use Types Packs/Day Years Used Date Never Assessed Sex Assigned at Date Recorded Not on file documented as of this encounter Plan of Treatment Not on filedocumented as of this encounter Procedures Procedure Name Priority Date/Time Associated Comments Diagnosis HPV DETECTION, HIGH Routine 10/14/2008 22:55 Resu lts for this RISK TYPES EST procedure are i n the results section. CYTOPATHOLOGY Routine 10/14/2008 0:00 Results for this EST procedure are i n the results section. documented in this encounter Results HUMAN PAPILLOMA VIRUS DNA TEST (10/14/2008 22:55 EST) Specimen Description Cervix, ThinPrep [facility] L AB vial Result Negative for HPV [facility] types 16, 18, 31, 33, 35, 39, 45, 51, 52, 56, 58, 59, and 68. Report Status Final BECKY REDDY 10/28/2008 Specimen Performing Organization Address City/State/ZIP Code Phon e Number [facility] [address] [place] [address] SERVICES [facility] [address] [place] [address] CYTOPATHOLOGY (10/14/2008 0:00 EST) Pathology Report: CYTOPATHOLOGY REPORT ? [facility] ? LAB Reports generated via electr Optimusic interface contain original data; ? however they are lacking the format of the original report. ? Caution should be taken when reading/interpreting unformatted reports. ? Name: ? YULIET REYNAGA ? Accession #: ? [id number] ? : ? 1955 (Age: 53) ??F ?Collect Date: ? 10/14/2008 ? Location: ? [facility] ? Receive Date: ? 10/17/2008 ? Provider: ?COLTEN LARES DO ? Copy to: ? Specimen/Source: ? Pap Test, Cervix/Endocervix, ThinPrep Imaging System ? with manual evaluation ? Last Menstrual Period: ? 12/03/08 ? Other: ? HPVDX - HPV testing requeste d regardless of diagnosis on current ThinPrep Pap ?? test. ? SPECIMEN ADEQUACY ? Satisfactory for Eval uation ? - transformation zone compon ent present ? GENERAL CATEGORIZATION ? Negative for Intraepi thelial Lesion or Malignancy ? Document reviewed and electr onically signed by: ? Yuliet F. asagrace, S CT(ASCP) ? Report Date: ??12/31/ 2008 10:47 ? End of Report ? Specimen Performing Organization Address City/State/ZIP Code Phon e Number [facility] [address] [place] [address] SERVICES [facility] [address] [place] [address] documented in this encounter Visit Diagnoses Not on filedocumented in this encounter
--- OUTSIDE RECORDS SUMMARY | 2022-08-26 00:10 | XMS_ITS | Encounter Summary ---
:1955 Author Organization [facility] Address [address] [place] [address] Care Team Providers Name Role Phone Colten Hunter DO Primary Care Provider Encounter Details Date Type Department Care Team Description 05/29/2017 Hospital Encounter [facility]- Julia Unknown, Provider, [facility] [address] [facility] [phone] [place] [address] (Work) [phone] Social History Tobacco Use Types Packs/Day Years Used Date Never Assessed Sex Assigned at Date Recorded Not on file documented as of this encounter Discharge Disposition Disposition Code Departure Means Destination Home or Self Fdc documented in this encounter Plan of Treatment Not on filedocumented as of this encounter Visit Diagnoses Not on filedocumented in this encounter Care Teams Software Validation Technician Relationship Specialty Start Date End Date Colten Hunter DO PCP - General 04/04/[address] [place] [address] documented as of this encounter
--- OUTSIDE RECORDS SUMMARY | 2022-08-26 00:10 | XMS_ITS | Encounter Summary ---
:1955 Author Organization [facility] Address [address] [place] [address] Care Team Providers Name Role Phone Colten Hunter DO Primary Care Provider Encounter Details Date Type Department Care Team Description 06/06/2018 Hospital Encounter [facility] - S Unknown, Pro Austin henderson MD [address] [facility] [phone] [place] [address] (Work) [phone] Social History Tobacco Use Types Packs/Day Years Used Date Never Assessed Sex Assigned at Date Recorded Not on file documented as of this encounter Discharge Disposition Disposition Code Departure Means Destination Home or Self Skilled Nursing documented in this encounter Plan of Treatment Not on filedocumented as of this encounter Visit Diagnoses Not on filedocumented in this encounter Care Teams Fishing Hand Relationship Specialty Start Date End Date Colten Hunter DO PCP - General 04/04/[address] [place] [address] documented as of this encounter
--- OUTSIDE RECORDS SUMMARY | 2022-08-26 00:10 | XMS_ITS | Encounter Summary ---
:1955 Author Organization [facility] system Address [address] [place] [address] Care Team Providers Name Role Phone Unavailable Primary Care Provider Unavailable Encounter Details Date Type Department Care Team Description 07/17/2007 Results Only [facility] - Colten Hunter, DO Maple conversion [address] [place] [address] [place], [place] [id number] [phone] Social History Tobacco Use Types Packs/Day Years Used Date Never Assessed Sex Assigned at Date Recorded Not on file documented as of this encounter Plan of Treatment Not on filedocumented as of this encounter Procedures Procedure Name Priority Date/Time Associated Diagnosis Comme nts CYTOPATHOLOGY Routine 07/17/2007 0:00 EDT Results for this procedure are i n the results section . documented in this encounter Results CYTOPATHOLOGY (07/17/2007 0:00 EDT) Pathology Report: CYTOPATHOLOGY REPORT [facility] Reports generated via electronic interface contain frances ginal data; however they are lacking the format of the original re port. Caution should be taken when reading/interpreting unfo rmatted reports. Name: ? HARRIETT REYNAGA ? Accession #: ? [id number] : ? 1955 (Age: 52) ??F ?Collect Date: ? 06/24 Location: ? [facility] ? Receive Date : ? 07/19/2007 Provider: ?COLTEN HUNTER DO Copy to: ? Specimen/Source: ? ThinPrep Pap Test, Cervix/Endocervix, processed on Kextil ThinPrep Imaging System, with manual evaluation Last Menstrual Period: ? 06/26/07 Other: ? HPVA - HPV testing requested if ASC-US on the current ThinPrep Pap test. ? SPECIMEN ADEQUACY ? Satisfactory for Evaluation - transformation zone component present GENERAL CATEGORIZATION ? Negative for Intraepithelial Lesion or Malignan cy INTERPRETATION ? Shift in danny present suggestive of bacterial vaginosis. ? Document reviewed and electronically signed by: ? FERN Farr(ASCP) ? Report Date: ??07/24/2007 14:47 End of Report Specimen Performing Organization Address City/State/ZIP Code Phon e Number [facility] [address] [place] [address] SERVICES [facility] [address] [place] [address] documented in this encounter Visit Diagnoses Not on filedocumented in this encounter
--- NOTE | 2022-08-26 08:00 | DI.MAMMO_ITS ---
Exam(s) MAMMO SCREENING EXAM: MAMMO SCREENING CLINICAL HISTORY: screening,Z12.39. TECHNIQUE: Bilateral full field digital CC and MLO mammographic images were obtained with 3D tomosyn thesis and utilizing computer aided detection (CAD). COMPARISON: Prior mammograms were reviewed. FINDINGS: No new significant findings in the right breast. In the left breast on CC view there is an asymmetric density-possible nodule measuring 6 x 5 millimet ers, located 4 cm from the nipple lateral of center. This has been waxing and waning on prior mammog barbara. On the MLO view of the left breast there is a asymmetric density-possible nodule measuring 5 x 4 mill imeters located 4 cm in from the nipple on the MLO view. This equivocal on 3D imaging. There are no malignant-appearing microcalcification groups in this region or elsewhere in either breast. There is no significant architectural distortion nor skin thickening-retraction. IMPRESSION: 1. No radiographic evidence of malignancy in the right breast. 2. Left breast asymmetric densities-possible nodules as described above. Spot compression CC and MLO views are recommended as well as complete breast ultrasound. BI-RADS Category 0 - Assessment Incomplete: Need additional imaging evaluation Breast Density - Category B - Scattered areas of fibroglandular density Breast density Category C or D implies that the patient has dense breast tissue. Dense breast tissue can make it harder to find cancer on a mammogram. Dense breast tissue is also associated with an incr eased risk of breast cancer. This information about the result of the mammogram report was provided to the patient to raise their awareness. Use this report when you speak with the patient about their risks for breast cancer, which includes their family history. At that time, you may recommend additional screening tests (Ultrasoun d or MRI) as these tests may add significant information. A negative radiographic report should not delay biopsy if a dominant or clinically suspicious mass is present. Up to ten percent of cancers are not identified on mammography. A negative report may reinforce clinical impression. Adenosis and dense breasts may obscure an underlying neoplasm. False positive reports average 6 to 10%. Patient will receive a letter notifying them of these results.
--- NOTE | 2022-08-26 08:00 | DI.DEXA_ITS ---
Exam(s) XR DEXA BONE DENSITY W/WO MILES EXAM: XR DEXA BONE DENSITY W/WO MILES CLINICAL HISTORY: SCREENING FOR OSTEOPOROSIS IN POSTMENOPAUSAL WOMAN,Z78.0 TECHNIQUE: Routine DEXA evaluation of the lumbar spine, hip, or forearm. COMPARISON: No exams were available for comparison FINDINGS: Performed on a Hologic unit. Lateral image: No compression fracture evident. Lumbar Spine total T-score: -1.4 Hip total T-score:-1.2 Independent reading at the level of the femoral neck yields at T-score of -2.1. Forearm total T-score: -2.4 IMPRESSION: Bone mineral density measures in the osteopenia range. Fracture risk is moderate. Note: Any spine fracture indicates 5x risk for subsequent spine fracture and 2x risk for subsequent h ip fracture. World Health Organization criteria for BMD interpretation classify patients: Normal...... T- Score at or above -1.0 Osteopenic... T- Score between -1.0 and -2.5 Osteoporosis... T-Score at or below -2.5
== END ==
PROVIDERS: PCP Nurse Practitioner Family; Visit Provider Nurse Practitioner Family
DX: Z12.31 Encounter for screening mammogram for malignant neoplasm of breast (principal); Z78.0 Asymptomatic menopausal state; R92.8 Other abnormal and inconclusive findings on diagnostic imaging of breast; Z13.820 Encounter for screening for osteoporosis; M85.89 Other specified disorders of bone density and structure, multiple sites
CPT/HCPCS: 77063; 77067; 77080

== ENCOUNTER → 2022-08-31 02:18 | Outpatient (CLI) | payer MEDICARE, MEDICAID, SELFPAY ==
--- NOTE | 2022-08-31 | DI.MAMMO_ITS ---
Exam(s) MG MAMMO SCREEN CALL BACK UNI US BREAST LT COMPLETE EXAM: MG MAMMO SCREEN CALL BACK UNI and U/S breast LT complete CLINICAL HISTORY: F/U MAMMO, ASYMMETRIC DENSITY LT, R92.8. TECHNIQUE: Craniocaudal and mediolateral oblique Full Field Digital Mammography views of the left br east with Computer Aided Diagnosis followed by Tomosynthesis and left breast ultrasound. COMPARISON: Comparison with prior examinations. FINDINGS: Mammography/Tomosynthesis: Masses/Architectural Distortion: The areas of concern are less prominent on the current examination. No suspicious masses or areas of architectural distortion are identified. Microcalcifictions: No suspicious pleomorphic-type are seen. Skin Thickening/Nipple Retraction: None. Complete left breast US: Echotexture: Normal appearance of the glandular tissue. Shadowing: No suspicious foci. Cyst: None. Solid lesions: A 0.4 x 0.2 x 0.2 cm solid hyperechoic avascular lesion is seen at the 11 o'clock posi tion 2 cm from the nipple. This may represent a benign lesion such as a lipoma. No other suspicious solid lesions are seen. Ductal dilation: None. IMPRESSION: 1. No definite evidence of malignancy is noted. 2. A six-month follow-up left mammogram is requested for re-evaluation. 3. The findings were discussed with the patient on the date of the examination. BI-RADS Category 3 - 6 month - Probably Benign Finding: Recommend follow-up imaging in 6 months Breast Density - Category B - Scattered areas of fibroglandular density Breast density Category C or D implies that the patient has dense breast tissue. Dense breast tissue can make it harder to find cancer on a mammogram. Dense breast tissue is also associated with an incr eased risk of breast cancer. This information about the result of the mammogram report was provided to the patient to raise their awareness. Use this report when you speak with the patient about their risks for breast cancer, which includes their family history. At that time, you may recommend additional screening tests (Ultrasoun d or MRI) as these tests may add significant information. A negative radiographic report should not delay biopsy if a dominant or clinically suspicious mass is present. Up to ten percent of cancers are not identified on mammography. A negative report may reinforce clinical impression. Adenosis and dense breasts may obscure an underlying neoplasm. False positive reports average 6 to 10%. Patient will receive a letter notifying them of these results.
== END ==
PROVIDERS: PCP Nurse Practitioner Family; Visit Provider Nurse Practitioner Family
DX: Z12.31 Encounter for screening mammogram for malignant neoplasm of breast (principal); R92.8 Other abnormal and inconclusive findings on diagnostic imaging of breast
CPT/HCPCS: 76642; 77063; 77067

== ENCOUNTER 2023-03-17 00:07 | Outpatient (CLI) | payer MEDICARE, MEDICAID, SELFPAY ==
--- NOTE | 2023-03-17 08:30 | DI.MAMMO_ITS ---
Exam(s) US BREAST LT COMPLETE MG MAMMO DIAGNOSTIC UNI EXAM: MG MAMMO DIAGNOSTIC UNI-LEFT AND COMPLETE LEFT BREAST ULTRASOUND CLINICAL HISTORY: F/U abnormal mammo,6 MO F/U,Z09.R92.8. TECHNIQUE: Both CC and MLO left breast mammographic images were obtained with 3D tomosynthesis techn ique and utilizing computer aided detection (CAD). Complete left breast ultrasound was performed including all 4 quadrants as well the axillary region. COMPARISON: Prior mammograms were reviewed, the most recent being August 2022. FINDINGS: DIAGNOSTIC LEFT BREAST MAMMOGRAM: No significant masses nor malignant-appearing microcalcification groups. No architectural distortion or skin thickening-traction. COMPLETE LEFT BREAST ULTRASOUND: No significant solid lesions seen in all 4 quadrants on the present study. At the 10 o'clock position there is a benign 4-5 millimeter microcyst noted. Scanning of the left axilla is negative for adenopathy. IMPRESSION: 1. No radiographic evidence of malignancy in left breast. 2. Benign left breast ultrasound finding which is a solitary 4-5 mm micro cyst at the 10 o'clock posi tion. Appropriate follow-up is to keep this patient on a yearly mammogram schedule, implying the next [facility] mammogram would be in July or August 2023, with earlier imaging if a self detected breast c hange is noted.. The patient was informed of the findings and follow-up recommendations by myself prior to leaving the department today. BI-RADS Category 2 - Benign Findings Breast Density - Category B - Scattered areas of fibroglandular density Breast density Category C or D implies that the patient has dense breast tissue. Dense breast tissue can make it harder to find cancer on a mammogram. Dense breast tissue is also associated with an incr eased risk of breast cancer. This information about the result of the mammogram report was provided to the patient to raise their awareness. Use this report when you speak with the patient about their risks for breast cancer, which includes their family history. At that time, you may recommend additional screening tests (Ultrasoun d or MRI) as these tests may add significant information. A negative radiographic report should not delay biopsy if a dominant or clinically suspicious mass is present. Up to ten percent of cancers are not identified on mammography. A negative report may reinforce clinical impression. Adenosis and dense breasts may obscure an underlying neoplasm. False positive reports average 6 to 10%. Patient will receive a letter notifying them of these results.
== END 2023-03-17 00:27 ==
LOC: DI 00:07
PROVIDERS: PCP Nurse Practitioner Family; Visit Provider Nurse Practitioner Family
DX: R92.8 Other abnormal and inconclusive findings on diagnostic imaging of breast (principal); Z09 Encounter for follow-up examination after completed treatment for conditions other than malignant neoplasm
CPT/HCPCS: 76642; 77061; 77065; G0279

== ENCOUNTER 2024-05-27 03:33 | Outpatient (CLI) | payer MEDICARE, MEDICAID, SELFPAY ==
[2024-05-27 12:56] LABS: Anion Gap 8.1 mmol/L (3-11); BUN 20 mg/dL (7-18); CO2 28.9 mmol/L (21.0-32.0); CREATININE 1.1 mg/dL (0.55-1.02); Calcium 9.7 mg/dL (8.5-10.1); Chloride 104 mmol/L (98-107); Estimated GFR 55.07 (mL/min/1.73m2); Glucose 98 mg/dL (74-106); Potassium 3.9 mmol/L (3.5-5.1); Sodium 141 mmol/L (136-145)
[2024-05-28 18:01] LABS: Hemoglobin A1C 5.9 % (<5.7)
== END 2024-05-27 03:34 | disposition home or self-care (01) ==
LOC: LOS 03:33
PROVIDERS: PCP Nurse Practitioner Family; Visit Provider Nurse Practitioner Family
DX: R73.03 Prediabetes (principal); Z00.00 Encounter for general adult medical examination without abnormal findings
CPT/HCPCS: 36415; 80048; 83036

== ENCOUNTER 2024-07-29 01:14 | Outpatient (CLI) | payer MEDICARE, SELFPAY ==
--- NOTE | 2024-07-29 13:44 | DI.CTLCSR_ITS ---
Exam(s) CT CHEST LUNG CANCER SCREEN EXAM: CT CHEST LUNG CANCER SCREEN CLINICAL HISTORY: Screening for lung cancer,current smoker, f17.210. TECHNIQUE: Imaging Protocol: Low Dose Technique CONTRAST MATERIAL: None COMPARISON: No exams were available for comparison FINDINGS: CHEST: LUNGS: There are no ominous pulmonary nodules. There are no confluent infiltrates. No pleural effusi ons. MEDIASTINUM: There is no obvious hilar nor mediastinal adenopathy. CARDIAC: Heart size is normal. There is no pericardial effusion.Caliber of the thoracic aorta is wit hin normal limits. OTHER: Lowermost images reveal a hypodense nodule in the left adrenal gland measuring approximately 2 .7 by 2.0 cm (series 4/image 52); statistically probably an incidental adenoma. OSSEOUS: No significant osseous lesions.. IMPRESSION: 1. No significant lung nodules. No infiltrates nor pleural effusion nor intrathoracic adenopathy 2. Incidentally noted is a 2.7 x 2.0 cm partially included hypodense nodule in the left adrenal gland . If clinically indicated can be further worked up with chemical shift imaging MRI (in and out of ph ase sequences). 3. Lung RADS Cat 1S - Negative: No nodules and definitely benign nodules. Other: Clinically Significa nt or Potentially Clinically Significant Findings (non lung cancer) Lung-RADS 1.0 CATEGORIES: Category 0 - Prior chest CT exam(s) being located for comparison. Category 1 - Annual screening in 12 months. No nodules or definitely benign nodules. Category 2 - Annual screening in 12 months. Benign appearance. Nodules with low likelihood of becomin g active cancer. Category 3 - 6-month follow-up. Probably benign. Short-term follow-up suggested. Nodules with low lik elihood of becoming active cancer. Category 4A - 3-month follow-up and CT/PET if >8 mm in size. Suspicious finding. Findings which requi re additional testing. Category 4B - Findings which require additional testing and tissue sampling. Category 4X - Category 3 or 4 nodules with additional features or imaging findings that increases the suspicion of malignancy. Modifier S- Potentially clinically significant findings (non lung cancer) RADIATION DOSE DELIVERED: 25.22mGy.cm Total DLP DATA REPOSITORY: All CT scans at this facility are submitted to the National Radiology Data Registry (NRDR) Dose Index Registry (DIR) with the [employer] ([employer]). RADIATION OPTIMIZATION: All CT scans at this facility use at least one of these dose optimization te chniques: automated exposure control; mA and/or kV adjustment per patient size (includes targeted exa ms where dose is matched to clinical indication); or iterative reconstruction.
== END 2024-07-29 01:34 ==
LOC: DI 01:14
PROVIDERS: PCP Nurse Practitioner Family; Visit Provider Nurse Practitioner Family
DX: F17.210 Nicotine dependence, cigarettes, uncomplicated (principal); Z12.2 Encounter for screening for malignant neoplasm of respiratory organs
CPT/HCPCS: 71271

== ENCOUNTER 2024-08-19 01:25 | Outpatient (CLI) | payer MEDICARE, SELFPAY ==
[2024-08-19] MEDS: Gadoterate meglumine 20 ML VIAL IVP (08:16)
--- NOTE | 2024-08-19 08:30 | DI.MRI_ITS ---
Exam(s) MR ABDOMEN WO/W EXAM: MR ABDOMEN WO/W CLINICAL HISTORY: incidental left adrenal nodule,e27.9,f/u abnl lung screening ct TECHNIQUE: Multiplanar multisequence MRI of the Abdomen was performed. CONTRAST MATERIAL: IV Contrast: 12 mL of Dotarem contrast administered. COMPARISON: CT CT CHEST LUNG CANCER SCREEN from 07/29/2024 FINDINGS: Liver: Unremarkable. Pancreas: Unremarkable. Gallbladder and Bile Ducts: Unremarkable. Adrenals: 13 x 17 millimeter to the circumscribed nodule in the left adrenal gland. It was low Houns field units on CT, near water. Show signal dropout on opposed phase imaging. Fat signal on fat-supp ressed images. Findings are consistent with a benign adenoma. Kidneys: Parapelvic cyst on the left. Small cortical cysts. No follow-up recommended. Spleen: Unremarkable. Aorta: Infrarenal abdominal aortic aneurysm measuring 4.2 cm. 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 Soft Tissues: Unremarkable. Bone: Unremarkable. Lymph Nodes: Unremarkable. Lung bases: Unremarkable. Stomach and bowel: Unremarkable. Peritoneal cavity: Unremarkable. No evidence of ascites. IMPRESSION: Left adrenal nodule consistent with benign adenoma. 4.2 centimeter abdominal aortic aneurysm. 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 Unexpected findings DATA REPOSITORY:
== END 2024-08-19 01:45 ==
LOC: DI 01:25
PROVIDERS: PCP Nurse Practitioner Family; Visit Provider Nurse Practitioner Family
DX: E27.8 Other specified disorders of adrenal gland (principal); I71.40 Abdominal aortic aneurysm, without rupture, unspecified
CPT/HCPCS: 74183

== ENCOUNTER → 2024-11-21 14:38 | Outpatient (BNVA) | payer MEDICARE, SELFPAY | PROVIDERS: PCP Nurse Practitioner Family; Referring Provider Nurse Practitioner Family; Visit Provider Physical Therapy Assistant | DX: I71.40 Abdominal aortic aneurysm, without rupture, unspecified (principal); Z12.11 Encounter for screening for malignant neoplasm of colon | CPT/HCPCS: 99213 ==

== ENCOUNTER 2025-02-24 00:29 | Outpatient (CLI) | payer MEDICARE, SELFPAY ==
--- NOTE | 2025-02-24 09:33 | DI.MAMMO_ITS ---
Exam(s) MAMMO SCREENING EXAM: MAMMO SCREENING CLINICAL HISTORY: screening, Z12.39. TECHNIQUE: Bilateral full field digital CC and MLO mammographic images were obtained with 3D tomosyn thesis and utilizing computer aided detection (CAD). COMPARISON: Prior mammograms were reviewed. Prior ultrasound 03/17/2023 also reviewed. FINDINGS: There has been no significant change in the appearance and distribution of the fibroglandular tissue. There are no new spiculated masses. Small microcalcification group in the lateral aspect of the righ t breast remains stable. There are no new malignant-appearing microcalcification groups in either br east. Small asymmetric density upper-outer quadrant of the right breast seen on the MLO view is unchanged 2015. There is no significant architectural distortion nor skin thickening-retraction. IMPRESSION: Stable benign findings. No radiographic evidence of malignancy. BI-RADS Category 2 - Benign Findings Breast Density - Category B - There are scattered areas of fibroglandular density. Breast density Category C or D implies that the patient has dense breast tissue. Dense breast tissue can make it harder to find cancer on a mammogram. Dense breast tissue is also associated with an incr eased risk of breast cancer. This information about the result of the mammogram report was provided to the patient to raise their awareness. Use this report when you speak with the patient about their risks for breast cancer, which includes their family history. At that time, you may recommend additional screening tests (Ultrasoun d or MRI) as these tests may add significant information. A negative radiographic report should not delay biopsy if a dominant or clinically suspicious mass is present. Up to ten percent of cancers are not identified on mammography. A negative report may reinforce clinical impression. Adenosis and dense breasts may obscure an underlying neoplasm. False positive reports average 6 to 10%. Patient will receive a letter notifying them of these results.
== END 2025-02-24 00:49 ==
LOC: DI 00:29
PROVIDERS: PCP Nurse Practitioner Family; Visit Provider Nurse Practitioner Family
DX: Z12.31 Encounter for screening mammogram for malignant neoplasm of breast (principal); R92.323 Mammographic fibroglandular density, bilateral breasts; D24.1 Benign neoplasm of right breast
CPT/HCPCS: 77063; 77067

== ENCOUNTER 2025-07-04 14:52 | Outpatient (CLI) | payer MEDICARE, SELFPAY ==
[2025-07-04 09:36] LABS: Anion Gap 8.2 mmol/L (3-11); BUN 21 mg/dL (7-18); CO2 29.8 mmol/L (21.0-32.0); Calcium 9.3 mg/dL (8.5-10.1); Calculated LDL 119 mg/dL (<100); Chloride 103 mmol/L (98-107); Cholesterol 194 mg/dL (<200); Estimated GFR 49.00 (mL/min/1.73m2); Glucose 105 mg/dL (74-106); HDL Cholesterol 41 mg/dL (>or=50); Potassium 3.6 mmol/L (3.5-5.1); Sodium 141 mmol/L (136-145); Triglyceride 174 mg/dL (<150)
[2025-07-04 09:40] LABS: Hemoglobin A1C 5.8 % (<5.7)
== END 2025-07-04 14:53 | disposition home or self-care (01) ==
LOC: LBO 14:52
PROVIDERS: PCP Nurse Practitioner Family; Visit Provider Student in an Organized Health Care Education/Training Program
DX: E78.5 Hyperlipidemia, unspecified (principal); Z13.1 Encounter for screening for diabetes mellitus
CPT/HCPCS: 36415; 80048; 80061; 83695; 83036

== ENCOUNTER 2025-08-14 12:27 | Outpatient (REF) | payer MEDICARE, SELFPAY ==
--- NOTE | 2025-08-14 11:55 | PAPFT_PTH ---
PATIENT: Harriett Vyas LOC: [facility] U#:[id number] AGE/SX: 70/F ROOM: RE08/14/[address]: RO Kunz : 1955 BED: DIS: 08/14/2025 SPEC #: [id number] RECD: 08/14/25 18:04 STATUS: AMBER REMeri #: [id number] ROYCE: 08/14/25 11:[address]: Antonieta Lindquist DEPT: [facility] Cytology RECD BY: Rachana Potter Tissues: 1 - CX/ENDOCX FOR PAP SMEARS Procedures: PAP THIN PREP/UVM Screening HPV DNA PROBE Comments: [id number] (HPV 16 & 18/45)
== END 2025-08-14 12:28 | disposition home or self-care (01) ==
LOC: LBN 12:27
PROVIDERS: PCP Nurse Practitioner Family; Visit Provider Nurse Practitioner Family
DX: Z12.4 Encounter for screening for malignant neoplasm of cervix (principal)
CPT/HCPCS: 88142; 87624